=== PATIENT | male | born 1985 | race Two or more races ===

== ENCOUNTER 2017-07-18 00:09 | Emergency (ER) | payer OTHER ==
[2017-07-18 00:39] VITALS: PULSE 76; TEMP 98.7; BMI 29.5
--- NOTE | 2017-07-18 01:21 | PDOC ---
History of Present Illness - General History Source: Patient, Old Records Exam Limitations: No Limitations - History of Present Illness Initial Comments: 07/18/17 01:32 The patient is a 31 year old male with no significant past medical history, who presents to the emergency department today for further evaluation of headache and vomiting since yesterday. The patient states that yesterday he developed a worsening headache and took excedrin to try and alleviate symptoms. He reports associated of non-bilious, non-bloody emesis x4, subjective fever, diaphoresis, nausea, and sinus congestion. He denies nasal congestion. He notes that his symptoms have since completely resolved. <Eladio Cordero - Last Filed: 07/18/17 02:25> - General History Source: Patient <Maxwell Bill - Last Filed: 07/18/17 02:33> - General Chief Complaint: Nausea/Vomiting Stated Complaint: VOMITING,BP PROBLEM,HEADACHE Time Seen by Provider: 07/18/17 01:05 Past History <Eladio Cordero - Last Filed: 07/18/17 02:25> - Suicide/Smoking/Psychosocial Hx Smoking History: Never smoked Have you smoked in the past 12 months: No Information on smoking cessation initiated: No Hx Alcohol Use: No Drug/Substance Use Hx: No <Maxwell Bill - Last Filed: 07/18/17 02:33> - Past Medical History Allergies/Adverse Reactions: Allergies Allergy/AdvReac Type Severity Reaction Status Date / Time No Known Allergies Allergy Verified 07/18/17 00:33 Home Medications: Ambulatory Orders Amox-Tr/K Cl [Augmentin 875Mg Tablet] 1 tab PO BID #20 tablet 07/18/17 Dextroamphetamine/Amphetamine [Adderall 10 mg Tablet] 10 mg PO DAILY 07/18/17 Pseudoephedrine HCl [Sudafed] 30 mg PO Q6H #14 tablet 07/18/17 Review of Systems - Review of Systems Able to Perform ROS?: Yes Comments:: 07/18/17 01:33 CONSTITUTIONAL: (+) Headache, fever, diaphoresis, sinus congestion Absent: no chills, no fatigue EYES: Absent: visual changes ENT: Absent: ear pain, no sore throat CARDIOVASCULAR: Absent: chest pain, no palpitations RESPIRATORY: Absent: cough, no SOB GI: (+) Vomiting, nausea, Absent: abdominal pain, no constipation, no diarrhea GENITOURINARY: Absent: dysuria, no frequency, no hematuria MUSCULOSKELETAL: Absent: back pain, no arthralgia, no myalgia SKIN: Absent: rash <RodrigoshermanEladio - Last Filed: 07/18/17 02:25> *Physical Exam - Vital Signs Last Vital Signs Temp Pulse Resp BP Pulse Ox 98.7 F 76 21 158/104 100 07/18/17 00:30 07/18/17 00:30 07/18/17 00:30 07/18/17 00:30 07/18/17 00:30 - Physical Exam Comments: 07/18/17 01:33 GENERAL: Well-appearing, well-nourished. No apparent distress. HEENT: Normocephalic, atraumatic. PERRL, EOM intact. CARDIOVASCULAR: Normal S1, S2. Regular rate and rhythm. PULMONARY: Clear to auscultation bilaterally. ABDOMEN: Soft, non-distended, non-tender. EXTREMITIES: Normal ROM in all four extremities. No gross deformities. SKIN: Warm, dry. No rash NEUROLOGICAL: No focal neurological deficits. <DonalshermanEladio - Last Filed: 07/18/17 02:25> - Vital Signs Last Vital Signs Temp Pulse Resp BP Pulse Ox 98.7 F 76 21 158/104 100 07/18/17 00:30 07/18/17 00:30 07/18/17 00:30 07/18/17 00:30 07/18/17 00:30 <Maxwell Bill - Last Filed: 07/18/17 02:33> Medical Decision Making - Medical Decision Making 07/18/17 02:24 EXAM: HEAD CT WITHOUT CONTRAST HISTORY: Intracranial bleed COMPARISON: None. FINDINGS: The ventricular system is midline and nondilated. The sulcal pattern is normal for the patient's age. There is no bleed, mass, extra-axial fluid collection or mass effect. No skull fracture or skull lesion is identified. Exercise mucosal thickening with better evaluated on the associated CT of the sinuses. The other visualized paranasal sinuses and mastoid air cells are clear. IMPRESSION: No evidence of acute intracranial pathology. CONFIDENTIALITY NOTICE: This information is intended only for the use of the recipient(s) named above. If you are not the intended recipient, or a person responsible for delivering it to the intended recipient, you are hereby notified that any disclosure, copying, distribution or use of any of the information contained in or attached to this transmission is STRICTLY PROHIBITED. If you have received this transmission in error, please immediately notify Imaging Folder Operator and destroy the original transmission and its attachments without saving them in any manner [address] [place] [address] [place] [address] Phone: [phone]) Fax: Email: [email or web address] Web: [email or web address] Patient Information: : 1985 Name: ELENA CUMMINGS Sex: M Study Description: CT HEAD Modality: CT Location: [facility] Referring Physician: BRI ZALDIVAR THIS DOCUMENT HAS BEEN ELECTRONICALLY SIGNED Aldo Veras MD 07/18/2017 02:16 EST 07/18/17 02:25 EXAM: SINUS CT W/O CONTRAST HISTORY: Sinusitis COMPARISON: None. FINDINGS: The intraorbital contents are intact. Prominent mucosal thickening of the right maxillary sinus to suggest sinusitis further left maxillary sinus retention cysts or polyps. The other sinuses and visualized mastoid air cells are well aerated. There is no fracture. IMPRESSION: Suspected right maxillary sinusitis. CONFIDENTIALITY NOTICE: This information is intended only for the use of the recipient(s) named above. If you are not the intended recipient, or a person responsible for delivering it to the intended recipient, you are hereby notified that any disclosure, copying, distribution or use of any of the information contained in or attached to this transmission is STRICTLY PROHIBITED. If you have received this transmission in error, please immediately notify Imaging Folder Operator and destroy the original transmission and its attachments without saving them in any manner [address] [place] [address] [place] [address] Phone: [phone] ([phone]) Fax: Email: [email or web address] Web: [email or web address] Patient Information: : 1985 Name: ELENA CUMMINGS Sex: M Study Description: CT SINUSES Modality: CT Location: [facility] Referring Physician: BRI ZALDIVAR THIS DOCUMENT HAS BEEN ELECTRONICALLY SIGNED Aldo Veras MD 07/18/2017 02:20 EST <Eladio Cordero - Last Filed: 07/18/17 02:25> - Medical Decision Making 07/18/17 02:33 Dr. Bill: The scribe's documentation has been prepared under my direction and personally reviewed by me in its entirery. I confirm that the note above accurately reflects all work, treatment, procedures, and medical decision making performed by me. <Maxwell Bill - Last Filed: 07/18/17 02:33> *DC/Admit/Observation/Transfer - Attestations Scribe Attestion: 07/18/17 01:33 Documentation prepared by Eladio Cordero, acting as medical anthropologist for Maxwell Bill DO. <Eladio Cordero - Last Filed: 07/18/17 02:25> - Discharge Dispostion Admit: No <Maxwell Bill - Last Filed: 07/18/17 02:33> Diagnosis at time of Disposition: Sinusitis Qualifiers: Sinusitis location: maxillary Chronicity: acute Recurrence: non-recurrent Qualified Code(s): J01.00 - Acute maxillary sinusitis, unspecified - Discharge Dispostion Disposition: HOME Condition at time of disposition: Stable - Prescriptions Prescriptions: Amox-Tr/K Cl [Augmentin 875Mg Tablet] 1 tab PO BID #20 tablet Pseudoephedrine HCl [Sudafed] 30 mg PO Q6H #14 tablet - Referrals Referrals: Soy Green MD [Primary Care Provider] - - Patient Instructions Printed Discharge Instructions: DI for Sinusitis Additional Instructions: Please take medication as directed. Follow up with your primary care doctor for re-evaluation of sinusitis. - Post Discharge Activity
[2017-07-18 01:33] VITALS: BP 140/91
[2017-07-18] MEDS ORDERED: PSEUDOEPHEDRINE HCL 30 MG TABLET PO STA (02:29)
[2017-07-18] MEDS ORDERED: AMOX TR/POT CLAV 875MG/125MG TABLETS (FP) PO STA (02:29)
[2017-07-18] MEDS ORDERED: AMOX TR/POT CLAV 875MG/125MG TABLETS (FP) ONE (02:33)
== END 2017-07-18 02:54 | disposition home or self-care (01) ==
LOC: JER 00:09
DX: J01.00 Acute maxillary sinusitis, unspecified (principal)
CPT/HCPCS: 70450-TC; 70486-TC; 99282-25

== ENCOUNTER 2020-05-22 08:12 | Emergency (ER) | payer OTHER ==
[2020-05-22 08:16] VITALS: BP 142/99; PULSE 84; TEMP 98.1; BMI 34.0
[2020-05-22] MEDS ORDERED: KETOROLAC TROMETHAMINE 30 MG/1 ML VIAL IM ONE (09:15)
[2020-05-22] MEDS ORDERED: KETOROLAC TROMETHAMINE 30 MG/1 ML VIAL ONE (09:19)
== END 2020-05-22 09:58 | disposition home or self-care (01) ==
LOC: JER 08:12
PROC: 3E0233Z Introduction of Anti-inflammatory into Muscle, Percutaneous Approach (ICD-10-PCS; principal; 2020-05-22)
DX: S99.922A Unspecified injury of left foot, initial encounter (principal)
CPT/HCPCS: 73610-TC-LT-FY; 99284-25

== ENCOUNTER 2020-06-02 13:27 | Emergency (ER) | payer OTHER ==
[2020-06-02 13:40] VITALS: BP 155/98; PULSE 84; TEMP 98.3; BMI 33.2
[2020-06-02] MEDS ORDERED: DIPHTH,PERTUSS(ACELL),TET 0.5 ML DISP.SYRIN IM ONE ×2 (14:14→14:16)
== END 2020-06-02 15:05 | disposition home or self-care (01) ==
LOC: JERFT 13:27 → JER 13:27 → JERFT 15:05
PROC: 0HQNXZZ Repair Left Foot Skin, External Approach (ICD-10-PCS; principal; 2020-06-02)
PROC: 3E0234Z Introduction of Serum, Toxoid and Vaccine into Muscle, Percutaneous Approach (ICD-10-PCS; 2020-06-02)
DX: S91.312A Laceration without foreign body, left foot, initial encounter (principal)
CPT/HCPCS: 73630-TC-LT; 90715; 99284-25

== ENCOUNTER 2022-07-15 03:47 | Emergency (ER) | payer OTHER ==
[2022-07-15 03:56] VITALS: BP 141/85; PULSE 90; RESP 20; TEMP 98.2; BMI 33.1
[2022-07-15] MEDS ORDERED: ACETAMINOPHEN 1000 MG/100 ML BAG IVPB ONE (04:54)
[2022-07-15 05:00] LABS: BASO % 0.7 % (0-2.0); EOS % 1.5 % (0-4.5); HEMATOCRIT 41.8 % (35.4-49); HEMOGLOBIN 14.1 GM/dL (11.7-16.9); LYMPH % 20.3 % (8-40); MCH 28.6 pg (25.7-33.7); MCHC 33.8 g/dl (32.0-35.9); MEAN CELL VOLUME 84.7 fl (80-96); MEAN PLT VOLUME 8.3 fl (7.5-11.1); MONO % 8.6 % (3.8-10.2); NEUT % 68.9 % (42.8-82.8); PLATELET COUNT 376 10^3/uL (134-434); RBC 4.94 M/mm3 (4.00-5.60); RDW 14.7 % (11.9-15.9); WHITE BLOOD COUNT 13.1 K/mm3 (4.0-10.0)
[2022-07-15] MEDS ORDERED: ACETAMINOPHEN INJECTION 100 ML IVPB ONE (05:01)
[2022-07-15 05:27] LABS: CALCIUM 8.9 mg/dL (8.5-10.1)
[2022-07-15 05:28] LABS: ALBUMIN 3.8 g/dl (3.4-5.0); BLOOD UREA NITROGEN 10.1 mg/dL (7-18)
[2022-07-15 05:29] LABS: INR 1.11 (0.83-1.09); PROTHROMBIN TIME (PATIENT) 12.9 SEC (9.7-13.0)
[2022-07-15 05:31] LABS: CREATININE 1.1 mg/dL (0.55-1.3)
[2022-07-15 05:33] LABS: TOT PROT 7.4 g/dl (6.4-8.2)
== END 2022-07-15 08:20 | disposition home or self-care (01) ==
LOC: JER 03:47
PROC: 3E033GC Introduction of Other Therapeutic Substance into Peripheral Vein, Percutaneous Approach (ICD-10-PCS; principal; 2022-07-15)
DX: R10.11 Right upper quadrant pain (principal)
CPT/HCPCS: 36415; 76705-TC; 80053; 83690; 84484; 85025; 85610; 93005; 93010; 99285-25

== ENCOUNTER 2023-06-24 16:12 | Emergency (ER) | payer OTHER ==
[2023-06-24 16:34] VITALS: BP 145/75; PULSE 85; RESP 18; TEMP 98; BMI 28.2
== END 2023-06-24 17:51 | disposition home or self-care (01) ==
LOC: JER 16:12
DX: S61.210A Laceration without foreign body of right index finger without damage to nail, initial encounter (principal); Y04.8XXA Assault by other bodily force, initial encounter
CPT/HCPCS: 99282-25

== ENCOUNTER 2023-08-06 17:38 | Emergency (ER) | payer OTHER ==
[2023-08-06 17:53] VITALS: BP 130/87; PULSE 90; RESP 18; TEMP 99.2; BMI 28.2
[2023-08-06] MEDS ORDERED: IBUPROFEN 600 MG TABLET (FP) PO ONE (18:52)
[2023-08-06] MEDS: IBUPROFEN 600 MG TABLET (FP) PO ONE (18:58)
[2023-08-06] MEDS ORDERED: BACITRACIN ZINC 15 GM TUBE TOPICAL OINTMENT ONE (20:22)
[2023-08-06] MEDS: BACITRACIN ZINC 15 GM TUBE TOPICAL OINTMENT TP ONE (20:26)
== END 2023-08-06 20:27 | disposition home or self-care (01) ==
LOC: JERFT 17:38
DX: R51.9 Headache, unspecified (principal); R68.84 Jaw pain; S20.319A Abrasion of unspecified front wall of thorax, initial encounter; S10.91XA Abrasion of unspecified part of neck, initial encounter; Y00.XXXA Assault by blunt object, initial encounter; Y92.410 Unspecified street and highway as the place of occurrence of the external cause; Y93.01 Activity, walking, marching and hiking
CPT/HCPCS: 70110-TC-FY; 70150-TC-FY; 99283-25

== ENCOUNTER 2023-08-20 13:20 | Emergency (ER) | payer OTHER ==
[2023-08-20 13:30] VITALS: BP 140/83; PULSE 71; RESP 18; TEMP 98.3; BMI 25.7
== END 2023-08-20 14:24 | disposition home or self-care (01) ==
LOC: JERFT 13:20
DX: L55.9 Sunburn, unspecified (principal); R21 Rash and other nonspecific skin eruption; L30.9 Dermatitis, unspecified
CPT/HCPCS: 99283-25